=== PATIENT | female | born 1980 ===

== ENCOUNTER 2020-01-22 09:43 | Outpatient (CLI) | payer OTHER ==
--- NOTE | 2020-01-22 13:08 | ULT ---
OB ULTRASOUND: HISTORY: Positive . Evaluate anatomy. FINDINGS: There is a single intrauterine gestation in transverse lie with the head to the maternal left. Cardi ac Doppler does demonstrate heart tones with a heart rate of 133 b.p.m. The placenta is located posteriorly, and the leading edge of the placenta is low lying. Subjectively, there is a nor mal amount of amniotic fluid. Amniotic fluid index is also within normal limits measuring 13.26 cm. Cervical length measures approximately 4 cm. measurements: Biparietal diameter 4.6 cm, 20 weeks Head circumference 17.73 cm, 20 weeks 2 days Abdominal circumference 15.36 cm, 20 weeks 4 days Femur length 3.3 cm, 20 weeks 3 days The estimated gestational age by ultrasound is 20 weeks and 3 days with TIMOTHY on 06/04/2020. Gestational age by the last menstrual period is 08/29/2019. The estimated weight by ultrasound is 352 gm (12 ounces). This represents 23rd percentile for weight. A four-chamber heart is not well delineated on this exam. The cerebellum, visualized portions of the spine, stomach, urinary bladder, and cord insertion are visualized and demonstrate a normal so nographic appearance. A 3-vessel cord is not visualized, but there does appear to be flow on either side of the urinary bladder which suggests a 3-vessel cord. The kidneys are not well seen. No defin ite anomalies are appreciated on this examination. IMPRESSION: 1. Low-lying placenta. 2. Single intrauterine gestation in transverse lie with heart tones documented. Gestational a ge by ultrasound is 20 weeks and 6 days with estimated date of delivery on 06/04/2020. 3. Estimated weight is 352 gm (12 ounces). 4. Amniotic fluid index is calculated at 13.26 cm. POS: [facility]
== END 2020-01-22 09:44 | disposition home or self-care (01) ==
LOC: BICULT 09:43
PROVIDERS: ATTEND Family Medicine
DX: O09.522 Supervision of elderly multigravida, second trimester (principal); Z3A.20 20 weeks gestation of pregnancy
CPT/HCPCS: 76805

== ENCOUNTER 2020-05-28 08:28 | Outpatient (CLI) | payer OTHER ==
[2020-05-28 17:48] LABS: SARS-CoV-2 MS2 Positive; SARS-CoV-2 N Gene Negative; SARS-CoV-2 S Gene Negative; SARS-CoV-2 by NAA Not Detected (NotDetected); SARS-CoV-2 orf1ab Negative
== END 2020-05-28 08:29 | disposition home or self-care (01) ==
LOC: LABSCS 08:28
PROVIDERS: ATTEND Family Medicine
DX: Z01.812 Encounter for preprocedural laboratory examination (principal); Z11.59 Encounter for screening for other viral diseases
CPT/HCPCS: 87635; U0003

== ENCOUNTER 2020-05-31 15:38 | Inpatient (IN) | payer MEDICAID, OTHER, SELFPAY ==
[~2020-05-31 15:38] MED LIST: Bupivacaine/Epinephrine 0.25% 30 ML VIAL ONE
[2020-05-31 20:24] VITALS: BMI 29.7
[2020-05-31] MEDS: Lactated Ringer's 1,000 ML IV SCH (20:45)
[2020-05-31] MEDS ORDERED: Lidocaine 1% (PF) 30 ML VIAL SC PRN (21:10)
[2020-05-31] MEDS ORDERED: Diphenoxylate HCl/Atropine Tablet PO PRN (21:10)
[2020-05-31] MEDS ORDERED: Carboprost 250 MCG/ML AMP IM PRN (21:10)
[2020-05-31] MEDS ORDERED: Butorphanol Tartrate 1 MG/ML VIAL SLOW IVP PRN (21:10)
[2020-05-31] MEDS ORDERED: Promethazine HCl 25 MG/ML VIAL IM PRN (21:10)
[2020-05-31] MEDS ORDERED: Methylergonovine 0.2 MG/ML VIAL IM PRN (21:10)
[2020-05-31] MEDS ORDERED: hydrALAZINE 20 MG/ML VIAL SLOW IVP PRN (21:10)
[2020-05-31] MEDS ORDERED: HYDROcodone/Acetaminophen 5/325 mg Tablet PO PRN (21:10)
[2020-05-31] MEDS ORDERED: NS / Oxytocin 40 units/1000ml 1,000 ML IV PRN (21:10)
[2020-05-31] MEDS ORDERED: Ibuprofen 800 MG TAB PO PRN (21:10)
[2020-05-31] MEDS ORDERED: Misoprostol 200 MCG TAB PR PRN (21:10)
[2020-05-31] MEDS ORDERED: Ondansetron PF 4 MG/2 ML Vial IVP PRN (21:10)
[2020-05-31] MEDS ORDERED: NS w/ Oxytocin 10 units 500 ML IV SCH ×2 (21:15)
[2020-05-31 21:33] LABS: Hemoglobin 11.5 g/dL (12.0-16.0); Mean Corpuscular Hemoglobin 33.1 pg (27.0-31.0); Mean Corpuscular Volume 94.7 fL (78.0-98.0); Mean Platelet Volume 9.2 fL (7.4-10.4); Platelet Count 227 thou/uL (130-400); RBC Distribution Width 12.6 % (11.5-14.5); Red Blood Cell (RBC) Count 3.47 mill/uL (4.20-5.40); White Blood Cell (WBC) Count 6.8 thou/uL (4.8-10.8)
[2020-05-31] MEDS: Misoprostol 100 MCG TAB VAG SCH (21:35)
[2020-05-31 22:09] LABS: Syphilis Antibody Nonreactive (Nonreactive); Syphilis Antibody Index 0.03 S/CO (<1.00 Non-Reactive)
[2020-06-01 00:07] LABS: HBSAg Index 0.16 S/CO (0-0.99); Hep B Surf Ag Non-Reactive S/CO (NonReactive)
[2020-06-01] MEDS: Misoprostol 100 MCG TAB VAG SCH ×3 (01:33→23:04)
[2020-06-01] MEDS: Lactated Ringer's 1,000 ML IV SCH ×3 (08:02→11:59)
[2020-06-01] MEDS ORDERED: Fentanyl 4 mcg/Bup 0.1% Cadd 100 ML ONE (08:57)
[2020-06-01] MEDS ORDERED: Lactated Ringer's 500 ML IV PRN (09:34)
[2020-06-01] MEDS ORDERED: Promethazine HCl 25 MG/ML VIAL IM PRN ×2 (09:34→15:43)
[2020-06-01] MEDS ORDERED: EPHEDRINE 25 MG/5 ML SYRINGE SLOW IVP PRN (09:34)
[2020-06-01] MEDS ORDERED: diphenhydrAMINE 50 MG/ML VIAL IVP PRN (09:34)
[2020-06-01] MEDS ORDERED: Naloxone HCl 0.4 mg/ml Vial IVP PRN ×2 (09:34)
[2020-06-01] MEDS ORDERED: Acetaminophen 325 MG TAB PO PRN (09:34)
[2020-06-01] MEDS ORDERED: Ondansetron PF 4 MG/2 ML Vial IVP PRN ×2 (09:34→15:43)
[2020-06-01] MEDS ORDERED: Fentanyl 4 mcg/Bupivacaine 0.1% Cassette 100 ML EPIDURAL SCH (09:45)
[2020-06-01] MEDS ORDERED: Communication Order-Pharmacy FS SCH (09:45)
--- NOTE | 2020-06-01 15:42 | PDOC.OPDEL ---
OB Operative/Delivery Note Delivery Dr/Surgeon: Omi Assist: [place] Pre-Delivery Diagnosis: elective induction Procedure/Post Delivery Dx: spontaneous vaginal delivery (precipitous) Weeks gestation: 39 Anesthesia: epidural - Findings A Sex: female Weight: 7 lb 11.106 oz - 1 min: 8 - 5 min: 9 - Additional Findings/Plan Placenta delivered: spontaneous Repaired Obstetrical Laceration: 2nd degree Estimated blood loss: 300 Post delivery plan: routine recovery
[2020-06-01] MEDS ORDERED: Milk Of Magnesia 30 ML UDCUP PO PRN (15:43)
[2020-06-01] MEDS ORDERED: HYDROcodone/Acetaminophen 5/325 mg Tablet PO PRN ×2 (15:43)
[2020-06-01] MEDS ORDERED: Methylergonovine 0.2 MG/ML VIAL IM PRN (15:43)
[2020-06-01] MEDS ORDERED: hydrALAZINE 20 MG/ML VIAL SLOW IVP PRN (15:43)
[2020-06-01] MEDS ORDERED: diphenhydrAMINE 25 MG CAP PO PRN (15:43)
[2020-06-01] MEDS ORDERED: Bisacodyl 10 MG SUPP PR PRN (15:43)
[2020-06-01] MEDS ORDERED: Misoprostol 200 MCG TAB VAG PRN (15:43)
[2020-06-01] MEDS ORDERED: Benzocaine-Menthol 82.5 ML CAN TOP PRN (15:43)
[2020-06-01] MEDS ORDERED: Preparation H Ointment 28 GM TUBE PR PRN (15:43)
[2020-06-01] MEDS ORDERED: NS / Oxytocin 40 units/1000ml 1,000 ML IV SCH (15:45)
[2020-06-01] MEDS: Docusate Calcium (SURFAK) 240 MG CAP PO SCH (20:44)
[2020-06-01] MEDS: Ibuprofen 800 MG TAB PO SCH (20:45)
[2020-06-01] MEDS: Ferrous Sulfate 325 MG TAB PO SCH (23:03)
[2020-06-02] MEDS: Ibuprofen 800 MG TAB PO SCH ×3 (06:07→22:04)
[2020-06-02] MEDS: Docusate Calcium (SURFAK) 240 MG CAP PO SCH ×2 (08:45→22:04)
[2020-06-02] MEDS: Ferrous Sulfate 325 MG TAB PO SCH ×2 (08:45→16:55)
[2020-06-02] MEDS ORDERED: Adacel (T-DAP) 0.5 ML SYRINGE IM ONE (09:00)
[2020-06-02] MEDS ORDERED: Varicella virus, LIVE 0.5 ML VIAL SC ONE (09:00)
[2020-06-02] MEDS ORDERED: Measles/Mumps/Rubella 10 MCG/0.5 ML VIAL SC ONE (09:00)
[2020-06-03] MEDS: Ibuprofen 800 MG TAB PO SCH (04:52)
[2020-06-03] MEDS: Ferrous Sulfate 325 MG TAB PO SCH (07:31)
[2020-06-03 08:20] VITALS: BP 94/51; TEMP 97.9
[2020-06-03] MEDS: Docusate Calcium (SURFAK) 240 MG CAP PO SCH (08:41)
== END 2020-06-03 13:15 | disposition home or self-care (01) | DRG 807 ==
LOC: L&D 19:59 → 3SW 06-01 17:36
PROVIDERS: ADMIT Family Medicine; ATTEND Family Medicine
PROC: 10907ZC Drainage of Amniotic Fluid, Therapeutic from Products of Conception, Via Natural or Artificial Opening (ICD-10-PCS; 2020-05-31)
PROC: 3E0P7VZ Introduction of Hormone into Female Reproductive, Via Natural or Artificial Opening (ICD-10-PCS; 2020-05-31)
PROC: 10E0XZZ Delivery of Products of Conception, External Approach (ICD-10-PCS; principal; 2020-06-01)
PROC: 0KQM0ZZ Repair Perineum Muscle, Open Approach (ICD-10-PCS; 2020-06-01)
DX: O99.284 Endocrine, nutritional and metabolic diseases complicating childbirth (principal); Z37.0 Single live birth; E03.9 Hypothyroidism, unspecified; Z3A.39 39 weeks gestation of pregnancy; Z79.890 Hormone replacement therapy; O70.1 Second degree perineal laceration during delivery
CPT/HCPCS: 36415; 51702; 85027; 86780; 86850; 86900; 86901; 87340; J2590